=== PATIENT | female | born 1935 | race Caucasian/White ===

== ENCOUNTER 2016-07-25 14:46 | Emergency (ER) | payer MEDICARE, BC ==
[2016-07-25] MEDS ORDERED: ONDANSETRON 4 MG VIAL ONE (18:05)
[2016-07-25] MEDS ORDERED: MORPHINE 4 MG/ML SYR ONE (18:05)
[2016-07-25] MEDS ORDERED: ED CLINDAMYCIN PREMIX 50 ML IV ONE (18:05)
== END 2016-07-25 20:11 | disposition home or self-care (01) ==
LOC: ER 14:46
CPT/HCPCS: 36415 ×2; 73630; 80053 ×2; 82947 ×2; 85025 ×2; 85652 ×2; 96365 ×2; 96366 ×2; 96375 ×2; 99284; J2270; J2405